=== PATIENT | female | born 1965 | race Caucasian/White ===

== ENCOUNTER 2020-01-31 13:23 | Emergency (ER) | payer BC, SELFPAY ==
--- NOTE | ~2020-01-31 | CT_ITS ---
EXAMINATION: CT facial bones wo con DATE: 01/31/2020 14:05 INDICATION: Facial pain after injury TECHNIQUE: Computed tomography (CT) of the facial bones was performed without intravenous contrast. T he dose-length product was 264.93 mGy-cm. Automated exposure control and iterative reconstruction serenity hnique were employed. COMPARISON: None FINDINGS: Orbits appear to be intact. There is mucosal thickening of the right maxillary antrum. Righ tward nasal septal deviation. Ostiomeatal units are patent. Mastoids are pneumatized. Rightward nasal septal deviation. Mandible is intact. Temporal mandibular joints are symmetric. Zygomatic arch is no rmal. Pterygoid plates within normal limits. No evidence for orbital blowout fracture. There is degen erative spondylosis of the mid cervical spine. IMPRESSION: 1. No acute facial fracture. Reviewed, dictated and finalized at location A. K TRIMMER
[2020-01-31 13:26] VITALS: BP 143/76; PULSE 73; RESP 20; TEMP 36.4; O2SAT 100
--- NOTE | 2020-01-31 13:46 | ED.GENADULT ---
HPI - General Adult General Chief complaint: Unspecified Stated complaint: I think i dislocated my jaw Time Seen by Provider: 01/31/20 13:34 Source: patient Mode of arrival: ambulatory Limitations: no limitations History of Present Illness HPI narrative: Patient is a 54-year-old female complaining of unable to close the jaw earlier after being hit by her dog in the jaw area prior to arrival. Patient states that she is able to close it now but that her teeth is not aligning as well. Patient is able to open her jaw and talk without difficulty. Related Data Home Medications Medication Instructions Recorded Confirmed fluoxetine mg 01/31/20 magnesium oxide mg 01/31/20 01/31/20 topiramate 01/31/20 01/31/20 Allergies Allergy/AdvReac Type Severity Reaction Status Date / Time adhesive Allergy Unknown HIVES Verified 01/31/20 13:30 garlic Allergy Unknown HIVES Verified 01/31/20 13:30 latex Allergy Unknown Skin Verified 01/31/20 13:30 Reaction onion Allergy Unknown HIVES Verified 01/31/20 13:30 gluten Allergy Migraine Verified 01/31/20 13:30 Review of Systems Review of Systems: All systems reviewed & are unremarkable except as noted in HPI and below Constitutional: Constitutional: Denies body ache(s), Denies chills, Denies excessive sweating, Denies fatigue, Denies fever(s), Denies headache(s), Denies lethargy, Denies malaise, Denies weakness and Denies weight loss Eyes: Eyes: Denies blurry vision, Denies change in vision and Denies loss of vision ENT: Denies dizziness, Denies ear discharge, Denies headache(s), Denies lip swelling, Denies epistaxis, Denies nasal congestion, Denies neck pain, Denies throat swelling and Denies tongue swelling Cardiovascular: Cardiovascular: Denies chest pain, Denies chest pain at rest, Denies chest pain with activity, Denies diaphoresis, Denies rapid heart rate, Denies edema, Denies irregular heart rhythm, Denies lightheadedness, Denies palpitations, Denies dyspnea and Denies dyspnea on exertion Respiratory: Respiratory: Denies chest congestion, Denies cough, Denies hemoptysis, Denies dyspnea and Denies dyspnea on exertion Gastrointestinal: Gastrointestinal: Denies abdominal pain, Denies melena, Denies hematochezia, Denies diarrhea, Denies nausea, Denies vomiting and Denies hematemesis Musculoskeletal: Musculoskeletal: Denies abnormal gait, Denies deformity, Denies joint swelling, Denies limited range of motion, Denies neck pain and Denies numbness Neurologic: Denies Abnormal speech present, Denies abnormal gait, Denies confusion, Denies dizziness, Denies headache(s), Denies focal weakness, Denies loss of vision, Denies numbness, Denies Other visual disturbances, Denies Sensory deficit (Neuro) and Denies weakness Psychiatric: Psychiatric: Denies confusion, Denies depression, Denies auditory hallucinations, Denies homicidal ideation and Denies suicidal ideation Endocrine: Endocrine: Denies cold intolerance, Denies excessive sweating, Denies fatigue, Denies heat intolerance and Denies palpitations Hematologic/Lymphatic: Hematologic/Lymphatic: Denies easy bleeding and Denies easy bruising Allergic/Immunologic: Allergic/Immunologic: Denies lip swelling, Denies throat swelling and Denies tongue swelling PMFSH Social History Social History Smoking status: Never smoker Alcohol intake: current Exam Const: General: cooperative, healthy appearing, comfortable, no acute distress, well developed, alert and awake; No confusion Orientation/consciousness: oriented to person, oriented to place, oriented to time, patient oriented x3 and No confusion Limitations: no limitations HENMT: Head: normal to inspection, normocephalic and atraumatic Ears: hearing grossly normal bilaterally, TM normal on the right and TM normal on the left General nose exam: Normal external nose present, Normal nares present and No nasal discharge present Face and sinus: normal facial exam Mouth: Yes Normal oral and native
== END 2020-01-31 15:55 | disposition home or self-care (01) ==
PROVIDERS: Emergency Provider Emergency Medicine; PCP Family Medicine
DX: S09.11XA Strain of muscle and tendon of head, initial encounter (principal); W54.1XXA Struck by dog, initial encounter
CPT/HCPCS: 70486; 99284

== ENCOUNTER 2022-07-03 11:12 | Outpatient (CLI) | payer BC, SELFPAY ==
--- NOTE | ~2022-07-03 | XR_ITS ---
EXAM: XR hand RT min 3V DATE: 07/03/2022 11:40 HISTORY: OA. RT 4TH DIGIT SWELLING, STIFFNESS . COMPARISON: None available. FINDINGS: Normal mineralization. No fracture or dislocation. No lytic or blastic lesion. Mild scatte red degenerative changes typical of osteoporosis arthritis. More significant narrowing and osteophyto sis, possibly with chronic erosions noted at the fourth PIP joint, where there is also overlying soft tissue swelling. No erosion or periosteal change. Soft tissues within normal limits. IMPRESSION: Polyarticular osteoarthritis. Possible erosive change noted in the fourth DIP joint. Give n the more severe monoarticular changes present in the fourth DIP joint, also consider psoriatic arth ritis or septic arthritis in the differential. Reviewed, dictated and finalized at location K. IMPRESSION: Polyarticular osteoarthritis. Possible erosive change noted in the fourth DIP joint. Given the more severe monoarticular changes present in the fo urth DIP joint, also consider psoriatic arthritis or septic arthritis in the di fferential.
== END 2022-07-03 11:13 | disposition home or self-care (01) ==
PROVIDERS: PCP Family Medicine; Visit Provider Plastic Surgery
DX: M19.041 Primary osteoarthritis, right hand (principal)
CPT/HCPCS: 73130

== ENCOUNTER 2022-11-23 15:19 | Outpatient (CLI) | payer BC, SELFPAY ==
[2022-11-23 18:45] LABS: Kit Draw Collected
== END 2022-11-23 15:20 | disposition home or self-care (01) ==
LOC: ANHGOSHLAB 15:20
PROVIDERS: PCP Family Medicine; Visit Provider Family Medicine
DX: N92.4 Excessive bleeding in the premenopausal period (principal); E03.9 Hypothyroidism, unspecified; E78.2 Mixed hyperlipidemia
CPT/HCPCS: 36415